=== PATIENT | male | born 2000 | race Caucasian/White ===

== ENCOUNTER → 2022-12-26 | Outpatient (CLI) | payer OTHER ==
[2022-12-26 10:06] LABS: ALKALINE PHOSPHATASE 74 U/L (46-116); CHOLESTEROL 234 mg/dL (<200); LDL CHOLESTEROL 136 mg/dL (9-159); SGPT/ALT 17 U/L (10-49); TOTAL PROTEIN 7.1 gm/dL (6.0-8.0); TRIGLYCERIDES 185 mg/dl (<150)
[2022-12-26 12:16] LABS: B-hCG (QUALITATIVE) NEGATIVE
== END | disposition home or self-care (01) ==
LOC: LAB 08:44
PROVIDERS: ATTEND Physician Assistant Medical
DX: L70.0 Acne vulgaris (principal); Z79.899 Other long term (current) drug therapy